=== PATIENT | male | born 1990 | race Caucasian/White ===

== ENCOUNTER 2024-05-26 13:22 | Outpatient (AMB) | payer BC, SELFPAY ==
--- NOTE | 2024-05-26 14:10 | MHC.OFFWIV ---
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 Allergies No Known Allergies Allergy (Verified 05/26/24 14:22) Do you need a note to return to daycare/school/sports/work: Yes HPI HPI Comments History of Present Illness Details 33 y/o male patient who presents to the walk in with c/o right hand/wrist skin infection. Pt reports noticing 2 small cuts last week on his right hand/wrist. He does not recall how he might have cut himself. He noticed swelling and redness of right hand this past Thursday. He has been washing the area with Hydrogen Peroxide then with Hibiclens. Denies Fevers, chills, nausea or vomiting. 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 He has seen a doctor in over 10 years - no record of last Tdap. [facility] Medical History (Updated 05/26/24 @ 14:53 by Susana Taveras, SHEELA) Cellulitis of skin Review of Systems Const All systems reviewed & are unremarkable except as noted in HPI and below Physical Exam Vital Signs: Last Vital Signs Pulse 88 05/26/24 14:20 BP 140/90 H 05/26/24 14:20 Pulse Ox 98 05/26/24 14:20 Oxygen Delivery Method Room Air 05/26/24 14:20 BMI result Body Mass Index 25.4 Const General: cooperative, no acute distress and poor hygiene Nutritional Appearance: well nourished Orientation/consciousness: patient oriented x3 Skin Trauma: abrasion Full body images: 1. Cellulitis, redness with hand swelling. Neuro General: patient oriented x3 Extrem Right upper extremity: Extremity exam: right hand Details: normal capillary refill, tenderness Location: of the dorsal hand, normal ROM of fingers, swelling Location: of the dorsal hand, abrasion Location: of the dorsal hand and laceration (Lacerations dorsal hand.) Immunizations Boostrix Tdap 2.5 Lf unit-8 mcg-5 Lf/0.5 mL intramuscular syringe Performing Provider: Susana Taveras NP Performing Location: [facility] [place] [facility] Administered by: GARTH Odonnell on 05/26/24 14:56 Dose Route Admin Location Dispensed Lot Number Expiration Date [facility] Programmer Or Analyst 0.5 mL IM Right Deltoid 0.5 mL [id number] 05/25/26 65161-781-26 Funny Or Die VIS Given Date VIS Provided VIS Publication Date 05/26/24 Single Vaccine 20 Eligibility Eligibility Date Funding Source Not [facility] Eligible 05/26/24 Private Assessment & Plan Assessment & Plan (1) Cellulitis of skin: Code(s): L03.90 - Cellulitis, unspecified Plan: Ordered Keflex Ordered Tdap. Advised to keep the area clean and dry, plus covering when he is working. Orders: Orders TDaP Immunization Today Z23 - Encounter for immunization Medications: New cephalexin 500 mg PO BID 20 caps 0RF 10 days L03.90 - Cellulitis, unspecified Coding Level of Care Code New Pt Level 3 (84248) Diagnoses Cellulitis of skin L03.90 Time Spent (min) 15
[2024-05-26 14:20] VITALS: BP 140/90; PULSE 88; O2SAT 98; BMI 25.4
== END 2024-05-26 15:47 | disposition home or self-care (01) ==
PROVIDERS: Visit Provider Nurse Practitioner Family
DX: Z23 Encounter for immunization (principal); L03.90 Cellulitis, unspecified

== ENCOUNTER → 2024-05-26 13:22 | Outpatient (BNVA) | payer BC, SELFPAY | PROVIDERS: Visit Provider Nurse Practitioner Family | DX: L03.113 Cellulitis of right upper limb (principal); Z23 Encounter for immunization | CPT/HCPCS: 90471; 90715 ==